=== PATIENT | female | born 1945 | race Caucasian/White ===

== ENCOUNTER 2022-06-10 15:30 | Emergency (ER) | payer MEDICARE, SELFPAY ==
[2022-06-10 15:39] VITALS: BP 154/97; PULSE 81; TEMP 36.4; O2SAT 98; BMI 21.2
--- NOTE | 2022-06-10 16:07 | PC.NURSE ---
Pt has hx of stroke with R side deficits. PT is able to stand with assistance, walk 1 person assist. Pt R manager performance is slightly less than Left.
--- NOTE | 2022-06-10 16:12 | CTR_ITS ---
PROCEDURE INFORMATION: Exam: CT Head Without Contrast Exam date and time: 06/10/2022 4:38 PM Age: 76 years old Clinical indication: Weakness, extremity; Additional info: CVA TECHNIQUE: Imaging protocol: Computed tomography of the head without contrast. Radiation optimization: All CT scans at this facility use at least one of these dose optimization techniques: automated exposure control; mA and/or kV adjustment per patient size (includes targeted exams where dose is matched to clinical indication); or iterative reconstruction. Other protocol: This patient has received 0 known CTs and 0 known cardiac nuclear medicine studies in the 12 months prior to the current study. COMPARISON: No relevant prior studies available. RADIATION DOSE METRICS: Total DLP (mGy-cm): 1059.48 FINDINGS: Brain: There is diffuse cerebral atrophy present, consistent with this patient's age. There chronic lacunar infarcts in the basal ganglia, miguel, and internal/external capsules. Old left frontal lobe infarct. No evidence for large acute ischemic infarction. Please note acute ischemia can be occult by head CT. Calcified plaque is present within the intracranial vasculature. Cerebral ventricles: No ventriculomegaly. Paranasal sinuses: Visualized sinuses are unremarkable. No fluid levels. Mastoid air cells: Visualized mastoid air cells are well aerated. Bones/joints: Unremarkable. No acute fracture. Soft tissues: Unremarkable. CT/CT head wo con* [id number] IMPRESSION: Old left frontal lobe infarct and senescent changes of the brain as described above. No evidence for large acute ischemic infarction or acute intracranial injury.
--- NOTE | 2022-06-10 16:27 | ED_ITS ---
Documented by User: [email or web address] Peres 06/10/22 16:38 HPI - Weakness General: Chief complaint: Weakness Stated complaint: weakness Time Seen by Provider: 06/10/22 16:05 History of Present Illness: Patient is brought in by her . reports the patient had a stroke in November 2021. He reports that she had right side effects after that stroke but has went through therapy and does almost everything for herself at this time. He reports that she does usually require to be given only one-step directions at a time. He reports that this morning approximately 1015 she was unable to move her right side of her body and was very weak. He reports he also noticed speech changes. He reports this lasted approximately 15 minutes and then resolved. he reports that it came back approximately 12 today he was getting ready to take her for lunch and she could not get up which is abnormal for her. He reports that she could not move her right side of her body and her speech was bad again. He reports that those symptoms have not resolved. Patient reports that her right leg was numb but that has since resolved. Associated symptoms: Denies chest pain, chills, dysuria, fever(s), nausea or vomiting Review of Systems Const: Denies: fever(s) or chills Card: Denies: chest pain or palpitations Resp: Denies: dyspnea or productive cough GI: Denies: abdominal pain, nausea or vomiting : Denies: flank pain, difficulty voiding or dysuria Neuro: Reports: numbness in extremities, weakness in extremities, sensory changes and Slurred speech present [facility] ED PFSH: Social History Smoking and tobacco status: current some day smoker (Pt smokes when drinking ) Alcohol intake: current Alcohol intake frequency: holidays/special occasions only Current occupation: retired Physical Exam Const: COMMON NORMALS: alert ORIENTATION/CONSCIOUSNESS: Yes oriented to person, Yes oriented to place and Yes oriented to time Eye: COMMON NORMALS: Equal, round and reactive pupils present, EOMs intact bilaterally and conjunctivae normal CONJUNCTIVA: Yes conjunctivae normal PUPIL: Yes Equal, round and reactive pupils present Neck/C-Spine: COMMON NORMALS: no JVD Resp: COMMON NORMALS: normal respiratory effort, No use of accessory muscles and clear to auscultation bilaterally AUSCULTATION: clear to auscultation bilaterally Cardio: COMMON NORMALS: no JVD, regular rate, regular rhythm, S1 normal heart sound present and S2 normal heart sound present RATE: regular rate RHYTHM: regular rhythm HEART SOUNDS: S1 normal heart sound present and S2 normal heart sound present Neuro: SENSORIUM/ORIENTATION: Yes alert, Yes oriented to person, Yes oriented to place and Yes oriented to time COORDINATION/BALANCE: [id number]-[id number] test normal and hmfq-cz-[id number] test normal SPEECH: abnormal speech (mild dysarthria) Details: other (thick unsure of baseline) GAIT: Yes Other gait observations present (weaker on right leg requiring smaller steps) SENSORY EXAM: Yes extremities MOTOR EXAM: no tremor noted, Abnormal motor strength present (Right software sales representative is 1 out of 5 left hand software sales representative is 3 out of 5) right 1 / 5 and Pronator motor function present pronator drift of right upper extremity COORDINATION: kiupqn-ca-[id number] test normal and tdva-rw-jira test normal PUPIL EXAM: Normal pupillary reactivity/response: bilateral OTHER: NIHSS- 3 Course ED course: 1605?updated Dr. Patten that patient was placed in vertical flow. Last known normal was just before noon. Patient is out of the window for tPA. CT scan head ordered. Vital Signs: Vital signs: Vital Signs Temperature 97.5 F L 06/10/22 15:39 Pulse Rate 78 06/10/22 18:31 Respiratory Rate 16 06/10/22 18:31 Blood Pressure 152/88 06/10/22 18:31 Pulse Oximetry 99 06/10/22 18:31 Oxygen Delivery Me thod 06/10/22 15:39 MDM - Weakness Lab Data 06/10/22 16:18 06/10/22 16:[address] 06/10/22 16:12 IMPRESSION: Old left frontal lobe infarct and senescent changes of the brain as described above. No evidence for large acute ischemic infarction or acute intracranial injury. Laboratory Results WBC 8.0 10^3/uL (4.0-10.0) 06/10/22 16:18 RBC 4.69 10^6/uL (4.1-5.3) 06/10/22 16:18 Hgb 14.5 g/dL (11.5-15.3) 06/10/22 16:18 Hct 43.9 % (37.0-47.0) 06/10/22 16:18 MCV 93.6 fl (81-99) 06/10/22 16:18 MCH 30.9 pg (28.0-34.0) 06/10/22 16:18 MCHC 33.0 g/dL (30.0-36.0) 06/10/22 16:18 RDW 13.6 % (12.1-15.1) 06/10/22 16:18 Plt Count 323 10^3/cmm (130-400) 06/10/22 16:18 MPV 10.9 fL (7.4-10.4) H 06/10/22 16:18 Neut % (Auto) 66.3 % 06/10/22 16:18 Lymph % (Auto) 25.5 % 06/10/22 16:18 Elk % (Auto) 5.4 % 06/10/22 16:18 Eos % (Auto) 2.1 % 06/10/22 16:18 Baso % (Auto) 0.6 % 06/10/22 16:18 Neut # (Auto) 5.27 10^3/uL (1.8-7.7) 06/10/22 16:18 Lymph # (Auto) 2.0 10^3/uL (0.8-4.8) 06/10/22 16:18 Elk # (Auto) 0.4 10^3/uL (0.2-0.9) 06/10/22 16:18 Eos # (Auto) 0.2 10^3/uL (0.0-0.8) 06/10/22 16:18 Baso # (Auto) 0.1 10^3/uL (0.0-0.1) 06/10/22 16:18 Nucleated RBC % (auto) 0 % 06/10/22 16:18 Nucleated RBCs # 0.0 /100WBC 06/10/22 16:18 PT 12.60 SECONDS (12.1-14.9) 06/10/22 16:18 INR 0.92 (0.8-1.2) 06/10/22 16:18 APTT 24.7 SECONDS (23.9-36.7) 06/10/22 16:18 Sodium 141 mmol/L (136-145) 06/10/22 16:18 Potassium 3.9 mmol/L (3.5-5.1) 06/10/22 16:18 Chloride 103 mmol/L (98-107) 06/10/22 16:18 Carbon Dioxide 26 mmol/L (22-29) 06/10/22 16:18 Anion Gap 15.9 (5-19) 06/10/22 16:18 BUN 16 mg/dL (8-23) 06/10/22 16:18 Creatinine 0.7 mg/dL (0.5-0.9) 06/10/22 16:18 GFR Calculation Not Reportable 06/10/22 16:18 Glucose 119 mg/dL (65-115) H 06/10/22 16:18 POC Glucose 116 mg/dL (70-110) H 06/10/22 16:25 Calculated Osmolality 294 mOsm/kg (285-295) 06/10/22 16:18 Calcium 9.4 mg/dL (8.5-10.5) 06/10/22 16:18 Total Bilirubin 0.4 mg/dL (0.15-1.2) 06/10/22 16:18 AST 22 U/L (0-32) 06/10/22 16:18 ALT 17 U/L (0-33) 06/10/22 16:18 Alkaline Phosphatase 69 U/L (35-105) 06/10/22 16:18 Total Protein 6.7 g/dL (6.6-8.7) 06/10/22 16:18 Albumin 4.4 g/dL (3.5-5.2) 06/10/22 16:18 Globulin 2.3 g/dL (1.3-4.6) 06/10/22 16:18 Urine Color Yellow (Yellow) 06/10/22 17:09 Urine Appearance Hazy (CLEAR) A 06/10/22 17:09 Urine pH 6 (5-7) 06/10/22 17:09 Ur Specific [place] 1.015 (1.005-1.030) 06/10/22 17:09 Urine Protein Neg (Negative) 06/10/22 17:09 Urine Glucose (UA) Norm (Normal) 06/10/22 17:09 Urine Ketones 1+ (Negative) H 06/10/22 17:09 Urine Blood Neg (Negative) 06/10/22 17:09 Urine Nitrate Positive (Negative) H 06/10/22 17:09 Urine Bilirubin Neg (Negative) 06/10/22 17:09 Urine Urobilinogen Neg mg/dL (Negative) 06/10/22 17:09 Ur Leukocyte Esterase 2+ (Negative) H 06/10/22 17:09 Urine RBC Rare /hpf (0-2) 06/10/22 17:09 Urine WBC 25-40 /hpf (0-5) H 06/10/22 17:09 Ur Squamous Epith Cells 0-4 /hpf (0-5) H 06/10/22 17:09 Amorphous Sediment Not Reportable 06/10/22 17:09 Urine Bacteria 4+ /hpf (NONE) H 06/10/22 17:09 Discharge Plan Discharge Patient Disposition: Home Clinical Impression: Acute right-sided weakness, Facial droop, History of stroke Condition: Stable Prescriptions: No Action omeprazole 20 mg capsule,delayed release(DR/EC) 20 mg PO DAILY PRN multivitamin with iron [Daily Vitamin with Iron] PO oxybutynin chloride PO meloxicam 15 mg tablet See Rx Instructions .ROUTE .COMPLEX Qty: 7 0RF Dose Instruction: TAKE ONE TABLET BY MOUTH ONCE DAILY Rx Instructions: TAKE ONE TABLET BY MOUTH ONCE DAILY Discharge Orders: Discharge ED (Routine); Ordered 06/10/22 Ordered By: Shannan Pritchett Referrals: Geo Ace DO [Primary Care Provider] - Discharge Diet: Low Cholesterol Discharge Activity: Increase activity as tolerated Patient Instructions: Stroke (DC), Opioid Safety, Pain Management Activity Restrictions/Additional Instructions: CT examination of your head reveals no acute signs of any recent or new stroke activity. Your lab work is well within normal limits and shows no acute concerns for dehydration, electrolyte imbalance or any type of organ dysfunction. Continue to monitor your symptoms at home. If you again develop acute one-sided facial droop or one-sided body weakness or numbness you need to return to the emergency department as soon as possible-call EMS. Continue to take all your home medications as prescribed. Please notify your primary care doctor for Guan in the morning that you are seen and evaluated here in the emergency department for strokelike symptoms and have follow-up. Sign Out Sign Out Data: Patient Sign Out occurred on 06/10/22 at 17:42. Patient's care was discussed, and care was transferred from to ANNA MARIE Camejo. Coding Level of Care Code ED Critical Care Physician Assistant for Chg Fwd Documented by User: ANNA MARIE Camejo 06/10/22 19:48 HPI - Weakness General: Chief complaint: Weakness Stated complaint: weakness Time Seen by Provider: 06/10/22 16:05 PFSH ED PFSH: Social History Smoking and tobacco status: current some day smoker (Pt smokes when drinking ) Alcohol intake: current Alcohol intake frequency: holidays/special occasions only Current occupation: retired Course Vital Signs: Vital signs: Vital Signs Temperature 97.5 F L 06/10/22 15:39 Pulse Rate 78 06/10/22 18:31 Respiratory Rate 16 06/10/22 18:31 Blood Pressure 152/88 06/10/22 18:31 Pulse Oximetry 99 06/10/22 18:31 Oxygen Delivery Me thod 06/10/22 15:39 MDM - Weakness Medical Decision Making Patient presented to the emergency department today for concerns of return of strokelike symptoms. Patient had near complete evaluation by Mary Ann Morton nurse practitioner at the time of patient care transfer to myself, Shannan Pritchett PA-C. Patient's initial evaluation is previously documented and coordination of care with Dr. Patten was discussed on this patient specifically. Given the length of time patient has had symptoms, she is outside the window of any type o f thrombolytic intervention. Patient's lab work is otherwise unremarkable and CT at the time of care transfer was still pending. However, patient CT came back negative for any acute changes-only residual findings of previous stroke. I did discuss again with Dr. Patten who recommends verifying patient is on aspirin, anticoagulation, and a statin prior to discharge and allowing her to follow-up with primary care. I did speak with patient and and there was a little confusion [id number] about the patient's medication however, they report patient is on generic Eliquis, baby aspirin and indicates her doctor did not want her on a statin but rather magnesium chloride. Both patient and are content with the evaluation and are requesting discharge at this time. Patient was given strict return precautions regarding any return of strokelike symptoms. Differential Diagnosis Likely acute myocardial infarction (stroke, TIA), anemia, hypoglycemia, sepsis and dehydration Lab Data 06/10/22 16:18 06/10/22 16:[address] 06/10/22 16:12 IMPRESSION: Old left frontal lobe infarct and senescent changes of the brain as described above. No evidence for large acute ischemic infarction or acute intracranial injury. Laboratory Results WBC 8.0 10^3/uL (4.0-10.0) 06/10/22 16:18 RBC 4.69 10^6/uL (4.1-5.3) 06/10/22 16:18 Hgb 14.5 g/dL (11.5-15.3) 06/10/22 16:18 Hct 43.9 % (37.0-47.0) 06/10/22 16:18 MCV 93.6 fl (81-99) 06/10/22 16:18 MCH 30.9 pg (28.0-34.0) 06/10/22 16:18 MCHC 33.0 g/dL (30.0-36.0) 06/10/22 16:18 RDW 13.6 % (12.1-15.1) 06/10/22 16:18 Plt Count 323 10^3/cmm (130-400) 06/10/22 16:18 MPV 10.9 fL (7.4-10.4) H 06/10/22 16:18 Neut % (Auto) 66.3 % 06/10/22 16:18 Lymph % (Auto) 25.5 % 06/10/22 16:18 Elk % (Auto) 5.4 % 06/10/22 16:18 Eos % (Auto) 2.1 % 06/10/22 16:18 Baso % (Auto) 0.6 % 06/10/22 16:18 Neut # (Auto) 5.27 10^3/uL (1.8-7.7) 06/10/22 16:18 Lymph # (Auto) 2.0 10^3/uL (0.8-4.8) 06/10/22 16:18 Elk # (Auto) 0.4 10^3/uL (0.2-0.9) 06/10/22 16:18 Eos # (Auto) 0.2 10^3/uL (0.0-0.8) 06/10/22 16:18 Baso # (Auto) 0.1 10^3/uL (0.0-0.1) 06/10/22 16:18 Nucleated RBC % (auto) 0 % 06/10/22 16:18 Nucleated RBCs # 0.0 /100WBC 06/10/22 16:18 PT 12.60 SECONDS (12.1-14.9) 06/10/22 16:18 INR 0.92 (0.8-1.2) 06/10/22 16:18 APTT 24.7 SECONDS (23.9-36.7) 06/10/22 16:18 Sodium 141 mmol/L (136-145) 06/10/22 16:18 Potassium 3.9 mmol/L (3.5-5.1) 06/10/22 16:18 Chloride 103 mmol/L (98-107) 06/10/22 16:18 Carbon Dioxide 26 mmol/L (22-29) 06/10/22 16:18 Anion Gap 15.9 (5-19) 06/10/22 16:18 BUN 16 mg/dL (8-23) 06/10/22 16:18 Creatinine 0.7 mg/dL (0.5-0.9) 06/10/22 16:18 GFR Calculation Not Reportable 06/10/22 16:18 Glucose 119 mg/dL (65-115) H 06/10/22 16:18 POC Glucose 116 mg/dL (70-110) H 06/10/22 16:25 Calculated Osmolality 294 mOsm/kg (285-295) 06/10/22 16:18 Calcium 9.4 mg/dL (8.5-10.5) 06/10/22 16:18 Total Bilirubin 0.4 mg/dL (0.15-1.2) 06/10/22 16:18 AST 22 U/L (0-32) 06/10/22 16:18 ALT 17 U/L (0-33) 06/10/22 16:18 Alkaline Phosphatase 69 U/L (35-105) 06/10/22 16:18 Total Protein 6.7 g/dL (6.6-8.7) 06/10/22 16:18 Albumin 4.4 g/dL (3.5-5.2) 06/10/22 16:18 Globulin 2.3 g/dL (1.3-4.6) 06/10/22 16:18 Urine Color Yellow (Yellow) 06/10/22 17:09 Urine Appearance Hazy (CLEAR) A 06/10/22 17:09 Urine pH 6 (5-7) 06/10/22 17:09 Ur Specific [place] 1.015 (1.005-1.030) 06/10/22 17:09 Urine Protein Neg (Negative) 06/10/22 17:09 Urine Glucose (UA) Norm (Normal) 06/10/22 17:09 Urine Ketones 1+ (Negative) H 06/10/22 17:09 Urine Blood Neg (Negative) 06/10/22 17:09 Urine Nitrate Positive (Negative) H 06/10/22 17:09 Urine Bilirubin Neg (Negative) 06/10/22 17:09 Urine Urobilinogen Neg mg/dL (Negative) 06/10/22 17:09 Ur Leukocyte Esterase 2+ (Negative) H 06/10/22 17:09 Urine RBC Rare /hpf (0-2) 06/10/22 17:09 Urine WBC 25-40 /hpf (0-5) H 06/10/22 17:09 Ur Squamous Epith Cells 0-4 /hpf (0-5) H 06/10/22 17:09 Amorphous Sediment Not Reportable 06/10/22 17:09 Urine Bacteria 4+ /hpf (NONE) H 06/10/22 17:09 EKG Data EKG 1: I personally reviewed and interpreted this EKG as follows: EKG interpretation date: 06/10/22 EKG interpretation time: 17:09 Interpretation: NSR with HR 82 bpm Discharge Plan Discharge Patient Disposition: Home Clinical Impression: Acute right-sided weakness, Facial droop, History of stroke Condition: Stable Prescriptions: No Action omeprazole 20 mg capsule,delayed release(DR/EC) 20 mg PO DAILY PRN multivitamin with iron [Daily Vitamin with Iron] PO oxybutynin chloride PO meloxicam 15 mg tablet See Rx Instructions .ROUTE .COMPLEX Qty: 7 0RF Dose Instruction: TAKE ONE TABLET BY MOUTH ONCE DAILY Rx Instructions: TAKE ONE TABLET BY MOUTH ONCE DAILY Discharge Orders: Discharge ED (Routine); Ordered 06/10/22 Ordered By: Shannan Pritchett Referrals: Geo Ace DO [Primary Care Provider] - Discharge Diet: Low Cholesterol Discharge Activity: Increase activity as tolerated Patient Instructions: Stroke (DC), Opioid Safety, Pain Management Activity Restrictions/Additional Instructions: CT examination of your head reveals no acute signs of any recent or new stroke activity. Your lab work is well within normal limits and shows no acute concerns for dehydration, electrolyte imbalance or any type of organ dysfunction. Continue to monitor your symptoms at home. If you again develop acute one-sided facial droop or one-sided body weakness or numbness you need to return to the emergency department as soon as possible-call EMS. Continue to take all your home medications as prescribed. Please notify your primary care doctor for Guan in the morning that you are seen and evaluated here in the emergency department for strokelike symptoms and have follow-up. Sign Out Sign Out Data: Patient Sign Out occurred on 06/10/22 at 17:42. Patient's care was discussed, and care was transferred from to ANNA MARIE Camejo. Coding Level of Care Code ED Critical Care Physician Assistant for Blane Leary
[2022-06-10 16:30] LABS: Glucose Point of Care 116 mg/dL (70-110)
--- NOTE | 2022-06-10 16:38 | ECG_ITS ---
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 Measurements Intervals [place] Rate: 82 P: 52 MI: 175 QRS: 9 QRSD: 78 T: 46 QT: 362 QTc: 425 Interpretive Statements SINUS RHYTHM No previous ECG available for comparison Electronically Signed On 06-10-2022 17:35:38 FISHERY BIOLOGIST by Edin Holder M.D. [id number]
[2022-06-10 16:50] LABS: Basophils # 0.1 10^3/uL (0.0-0.1); Basophils % 0.6 %; Eosinophils # 0.2 10^3/uL (0.0-0.8); Eosinophils % 2.1 %; Hematocrit 43.9 % (37.0-47.0); Hemoglobin 14.5 g/dL (11.5-15.3); Lymphocytes % 25.5 %; Mean Corpuscular Hemoglobin 30.9 pg (28.0-34.0); Mean Corpuscular Volume 93.6 fl (81-99); Mean Platelet Volume 10.9 fL (7.4-10.4); Monocytes # 0.4 10^3/uL (0.2-0.9); Monocytes % 5.4 %; Neutrophils # 5.27 10^3/uL (1.8-7.7); Neutrophils % 66.3 %; Nucleated Red Blood Cells % 0 %; Platelet Count 323 10^3/cmm (130-400); Red Blood Count 4.69 10^6/uL (4.1-5.3); Red Cell Distribution Width 13.6 % (12.1-15.1)
[2022-06-10 16:58] LABS: INR 0.92 (0.8-1.2)
[2022-06-10 16:59] LABS: Partial Thromboplastin Time 24.7 SECONDS (23.9-36.7)
[2022-06-10 17:04] LABS: Alanine Aminotransferase 17 U/L (0-33); Albumin Level 4.4 g/dL (3.5-5.2); Alkaline Phosphatase 69 U/L (35-105); Anion Gap 15.9 (5-19); Aspartate Amino Transferase 22 U/L (0-32); Blood Urea Nitrogen 16 mg/dL (8-23); Calcium 9.4 mg/dL (8.5-10.5); Carbon Dioxide 26 mmol/L (22-29); Chloride 103 mmol/L (98-107); Globulin 2.3 g/dL (1.3-4.6); Glucose 119 mg/dL (65-115); Osmolality Calculated 294 mOsm/kg (285-295); Potassium 3.9 mmol/L (3.5-5.1); Sodium 141 mmol/L (136-145); Total Bilirubin 0.4 mg/dL (0.15-1.2); Total Protein 6.7 g/dL (6.6-8.7)
[2022-06-10 18:23] LABS: Add Urine Culture? Yes; Add Urine Microscopic? YES; Bacteria Urine 4+ /hpf; Bilirubin Urine Neg (Negative); Blood Urine Neg (Negative); Glucose Urine UA Norm (Normal); Ketones Urine 1+ (Negative); Leukocyte Esterase Urine 2+ (Negative); Nitrate Urine Positive (Negative); Protein Urine Neg (Negative); RBC Urine RARE /hpf (0-2); Specific Gravity, Urine 1.015 (1.005-1.030); Squamous Epithelial Cell Urine 0-4 /hpf (0-5); Urine Appearance Hazy (CLEAR); Urine Color Yellow (Yellow); Urobilinogen Urine Neg (Negative); WBC Urine 25-40 /hpf (0-5); pH Urine 6 (5-7)
[2022-06-10 18:31] VITALS: BP 152/88; PULSE 78; RESP 16; O2SAT 99
== END 2022-06-10 18:32 | disposition home or self-care (01) ==
PROVIDERS: Nurse Practitioner Family; Emergency Provider Physician Assistant; PCP Family Medicine
DX: R53.1 Weakness (principal); R29.810 Facial weakness; Z86.73 Personal history of transient ischemic attack (TIA), and cerebral infarction without residual deficits; F17.210 Nicotine dependence, cigarettes, uncomplicated
CPT/HCPCS: 36416; 70450; 80053; 81001; 82962; 85025; 85610; 85730; 87077; 87086; 87186; 93005; 99285